=== PATIENT | female | born 1965 | race Caucasian/White ===

== ENCOUNTER 2019-04-13 06:24 | Day surgery (SDC) | payer BC ==
[~2019-04-13] VITALS: Ht 160 cm; Wt 70.8 kg
[~2019-04-13 06:24] MED LIST: BENADRYL25 M1 OR; CIPRO500 MG PO; FLAGYL250 MG PO; NAPROSYN500 MG OR; NO HOME MEDS; NORVASC5 M1 PO; PRAVASTATIN SOD20 MG PO; VALSARTAN40 MG; VICOPROFEN OR
[2019-04-13 09:43] VITALS: BP 152/95
== END 2019-04-13 10:01 | disposition home or self-care (01) | DRG 951 ==
LOC: ENDO 06:24
PROVIDERS: ATTEND Surgery
PROC: 0DBL8ZX Excision of Transverse Colon, Via Natural or Artificial Opening Endoscopic, Diagnostic (ICD-10-PCS; principal; 2019-04-13)
DX: Z12.11 Encounter for screening for malignant neoplasm of colon (principal); D12.3 Benign neoplasm of transverse colon; I10 Essential (primary) hypertension; R73.03 Prediabetes; Z87.19 Personal history of other diseases of the digestive system; Z90.49 Acquired absence of other specified parts of digestive tract

== ENCOUNTER 2019-09-27 | Observation (INO) | payer BC ==
--- NOTE | 2019-09-27 18:05 | NUR ---
PT TO ROOM 13. CHANGED TO GOWN. MONITORS APPLIED. PT REPORTS FELT DIZZY AND PASSED OUT PRIOR TO ARRIVAL. HIT BACK OF NECK WHICH IS NOW PAINFUL AO X 3. SKIN PINK WARM AND DRY. MOVES ALL EXTREMITIES. FRIEND AT BEDSIDE
[2019-09-27] MEDS ORDERED: CYCLOBENZAPR5 MG PO (18:07)
[2019-09-27] MEDS ORDERED: MELOXICAM15 MG PO (18:08)
[2019-09-27] MEDS ORDERED: BUSPIRONE5 MG PO (18:08)
--- NOTE | 2019-09-27 18:15 | NUR ---
HARD C COLLAR APPLIED.
--- NOTE | 2019-09-27 18:34 | NUR ---
SALINE INFUSING. PT RESTING ON STRETCHER. FRIEND AT BEDSIDE.
[2019-09-27 18:39] LABS: HEMOGLOBIN 15.8 g/dl (12.0-16.0); IMMATURE GRANULOCYTES 0.5 % (0.0-5.0); MEAN CELL VOLUME 91.5 fL CALC (80.0-100.0); MEAN CORPUSCULAR HGB 31.2 pG CALC (26.0-32.0); MEAN CORPUSCULAR HGB CONC 34.1 g/dL CAL (32.0-36.0); NEUT# 7.31 thou/uL (2.00-7.15); RED BLOOD COUNT 5.07 mill/uL (4.20-5.60); RED CELL DISTRI WIDTH 12.9 % (11.5-15.5)
[2019-09-27 18:42] LABS: HEMATOCRIT 46.4 % (37.0-47.0)
--- NOTE | 2019-09-27 18:46 | NUR ---
PT AMBULATORY TO BATHROOM. UA OBTAINED. PT REQUESTS PAIN MEDICATION PRIOR TO CT. DR AWARE. DR WANTS PATIENT TO HAVE CT PRIOR TO GIVING ANY MEDICATION
[2019-09-27 18:51] LABS: ACT PARTIAL THROMBO TIME 27.1 SECONDS (20.0-32.5); ALBUMIN 4.6 g/dL (3.2-5.0); ALKALINE PHOSPHATASE 115 u/l (38-126); ANION GAP 16 (6-22 (CALC)); BILIRUBIN, TOTAL 1.1 mg/dL (0.0-1.4); BUN 15 mg/dL (7-17); BUN/CREATININE RATIO 17 (12-20 (CALC)); CARBON DIOXIDE 25 mmol/l (22-30); CHLORIDE 101 mmol/l (95-108); CREATININE 0.9 mg/dL (0.5-1.0); D-DIMER 2.2 mg/L (0.19-0.60); ETHYL ALCOHOL 0 mg/dl (0-30); GFR > 60 ML/MIN (>=60 (CALC)); GFR FOR AFR.AMER. > 60 ML/MIN (>=60 (CALC)); POTASSIUM 4.2 mmol/l (3.5-5.1); SODIUM 137 mmol/l (137-146); TOTAL PROTEIN 7.7 g/dL (6.3-8.2)
[2019-09-27 18:55] LABS: SGOT/AST 97 u/l (14-36)
--- NOTE | 2019-09-27 19:02 | NUR ---
REPORT GIVEN TO NAHUM REICH
[2019-09-27 19:13] LABS: MYOGLOBIN 1536 ng/mL (0 - 62)
[2019-09-27 19:35] LABS: URINE BILIRUBIN - DIPSTICK NEGATIVE (NEGATIVE); URINE BLOOD DIPSTICK TRACE-INTACT (NEGATIVE); URINE COLOR YELLOW; URINE GLUCOSE - DIPSTICK NEGATIVE (NEGATIVE); URINE KETONE NEGATIVE (NEGATIVE); URINE LEUK ESTERASE NEGATIVE (NEGATIVE); URINE NITRITE - DIPSTICK NEGATIVE (Negative); URINE PROTEIN - DIPSTICK NEGATIVE (NEG-TRACE); URINE SPECIFIC GRAVITY 1.015; URINE UROBILINOGEN - DIPSTICK 0.2 E.U./dL (0.2)
[2019-09-27 19:41] LABS: BARBITURATES NEGATIVE (NEGATIVE); COCAINE NEGATIVE (NEGATIVE); METHADONE NEGATIVE (NEGATIVE); OXCYCODONE NEGATIVE (NEGATIVE); TETRAHYDROCANNABIONOL NEGATIVE (NEGATIVE); TRICYLIC ANTIDEPRESSANTS NEGATIVE (NEGATIVE)
--- NOTE | 2019-09-27 20:10 | NUR ---
ATTEMPTED TO CALL REPORT
--- NOTE | 2019-09-27 20:22 | NUR ---
ATTEMPTED TO CALL REPORT
--- NOTE | 2019-09-27 20:35 | NUR ---
REPORT TO DAMIR SADLER. MED SURG. PT UP TO BR. COLLAR REMOVED.
--- NOTE | 2019-09-27 20:40 | NUR ---
RECIEVED REPORT FROM NURSE NAHUM PATIENT WAS TRANSPORTED VIA WHEELCHAIR, HOOKED TO TELE, PATIENT TELE SHOWS SINUS ZOILA 50'S, PATIENT DENIES CP AT THIS TIME. ORINETED TO ROOM AND CALL LIGHT SYSTEM.
--- NOTE | 2019-09-27 20:42 | NUR ---
TO FLOOR VIA W/C WITH POCKET MONITOR. PT REMAINS A/O [place]. NAD. FEELS BETTER.
--- NOTE | 2019-09-27 21:22 | NUR ---
TRANSFERRED TO ICU BED 4 VIA BED. PATIENT AWAKE AND ALERT, ANXIOUS BUT DENIES ANY PAIN OR DISCOMFORT.
--- NOTE | 2019-09-27 21:23 | NUR ---
RECEIVED PT TO ICU #4, PT AAOX3, NO C/O CHEST PAIN OR SOB. HR 33 B/P 113/49
--- NOTE | 2019-09-27 21:24 | NUR ---
[facility] CALLED
--- NOTE | 2019-09-27 21:25 | NUR ---
PT PLACED ON O2 3L NC.
--- NOTE | 2019-09-27 21:25 | NUR ---
AT AROUND 2045RECEIVED A PHONE CALL FROM ED THE PATIENT HR WAS 28-35 AND DIRECTOR AUTOMOTIVE CALLED HISTORIC PRESERVATIONIST THAT WHILE DOING ADMISSION PAPERWORKS THAT PATIENT PASSED OUT FOR ABOUT 20 SEC THEN BECAME CONSCIOUS AGAIN STAT EKG WAS ORDERED FOR RHYTHM CHANGED AT 2049, AND V/S TAKEN AT THAT TIME, HR MANUALLY 37, BP 100/42. ON EKG SHOWS HR 29, CALLED DR. LUU ABOUT 2109 AND UPDATED WITH THE V/S AND EKG AND ABOUT PATIENT LOOSING CONSCIOUSNESS AND ORDERED TO CALL DR. BAUER AND TRANSFER TO ICU, AT AROUND 2122 PATIENT WAS TRANSFERRED TO ICU AND REPORT GIVEN TO NURSE DONIS.
--- NOTE | 2019-09-27 21:32 | NUR ---
DR. BAUER AT BEDSIDE.
--- NOTE | 2019-09-27 21:32 | NUR ---
DR BAUER AT BEDSIDE, VERBAL ORDER TO GIVE ATROPINE 0.5MG IV, NO CHANGE IN HR. REPEAT ATROPINE 0.5MG IV.
--- NOTE | 2019-09-27 21:40 | NUR ---
DR BAUER AT BEDSIDE, VERBAL ORDER START DOPAMINE GTT AT 7MCG/KG. HR 32.
--- NOTE | 2019-09-27 21:45 | NUR ---
DR BAUER AT BEDSIDE, VERBAL ORDER INCREASE DOPAMINE TO 10MCG/KG.
--- NOTE | 2019-09-27 21:50 | NUR ---
PT C/O NAUSEA, VOMITED APPROX 100ML EMESIS. DR BAUER VERBAL ORDER ZOFRAN 4MG IV GIVEN. B/P 120/51 HR 38 PT AAOX3 NO CHEST PAIN AT THIS TIME.
--- NOTE | 2019-09-27 21:55 | NUR ---
DR BAUER AT BEDSIDE, START EXTERNAL PACING. RATE 50 8MA INTERM CAPTURE HR 43. B/P 120/49
--- NOTE | 2019-09-27 22:04 | NUR ---
[facility] CALLED.
--- NOTE | 2019-09-27 22:12 | NUR ---
DR LUU CALLED, [facility] WILL ACCEPT, DR LAUREN.
--- NOTE | 2019-09-27 22:15 | NUR ---
CALLED [facility], STEPHANIE SPOKE WITH HOUSES ADMITTING CLERK, LUCILA, 242 ICU.
--- NOTE | 2019-09-27 22:20 | NUR ---
[facility] CALLED FOR TRANSPORT.
--- NOTE | 2019-09-27 22:21 | NUR ---
SECOND IV SITE ESTABLISHED TO Karlee GUERRA #20.
--- NOTE | 2019-09-27 22:34 | NUR ---
CALLED [facility] ICU, REPORT GIVEN TO HJAA REICH.
--- NOTE | 2019-09-27 22:45 | NUR ---
PT AAOX3 NO C/O CHEST PAIN, HR 43 B/P 98/44. PT AWARE OF HELICOPTER TX TO [facility].
--- NOTE | 2019-09-27 22:55 | NUR ---
[facility] FLIGHT TEAM AT BEDSIDE. REPORT GIVEN TO FLIGHT RN. HR 41, B/P 86/43 PT AWAKE AND ALERT.
--- NOTE | 2019-09-27 23:00 | NUR ---
BEDSIDE MONITOR TURNED OFF FOR FLIGHT CREW, DATA LOST.
--- NOTE | 2019-09-27 23:10 | NUR ---
PT TRANSFERRED TO [facility] STRETCHER WITHOUT INCIDENT.
--- NOTE | 2019-09-27 23:19 | NUR ---
FLIGHT TEAM LEFT ICU, ENROUTE TO [facility].
--- NOTE | 2019-09-27 23:19 | NUR ---
FLIGHT TEAM OF ICU, ENROUTE TO [facility].
== END 2019-09-27 23:19 | DRG 309 ==
PROVIDERS: Emergency Medicine; ADMIT Internal Medicine
DX: I44.2 Atrioventricular block, complete (principal); M62.82 Rhabdomyolysis; I10 Essential (primary) hypertension; E11.9 Type 2 diabetes mellitus without complications; F17.210 Nicotine dependence, cigarettes, uncomplicated

== ENCOUNTER 2021-11-21 16:02 | Emergency (ER) | payer OTHER ==
[~2021-11-21] VITALS: Ht 160 cm; Wt 73.0 kg
[~2021-11-21 16:02] MED LIST changes: +BUSPIRONE5 MG PO; +CYCLOBENZAPR5 MG PO; +MELOXICAM15 MG PO
[2021-11-21] MEDS ORDERED: KEFLEX500 MG PO (17:00)
[2021-11-21 17:15] VITALS: BP 146/73
== END 2021-11-21 17:20 | disposition home or self-care (01) | DRG 605 ==
LOC: ED 16:02
PROC: 0HQ1XZZ Repair Face Skin, External Approach (ICD-10-PCS; principal; 2021-11-21)
DX: S01.81XA Laceration without foreign body of other part of head, initial encounter (principal); I10 Essential (primary) hypertension; F17.200 Nicotine dependence, unspecified, uncomplicated; W22.8XXA Striking against or struck by other objects, initial encounter; Y93.89 Activity, other specified; Y92.89 Other specified places as the place of occurrence of the external cause; Y99.0 Civilian activity done for income or pay